=== PATIENT | female | born 1935 | race Caucasian/White ===

== ENCOUNTER 2020-10-01 14:06 | Inpatient (IN) ==
[2020-10-01] MEDS ORDERED: SODIUM CHLORIDE 0.9% 1,000 ML IV STA ×2 (14:37→17:06)
[2020-10-01 15:47] LABS: Basophils # 0.1 10*3/uL (0.0-0.2); Basophils % 0.4 % (0.0-0.8); Eosinophils # 0.6 10*3/uL (0.0-0.87); Eosinophils % 3.9 % (0.00-10.9); Hematocrit 56.9 VOL% (35.7-47.0); Hemoglobin 17.7 GM/DL (12.0-16.0); Immature Granulocytes % 0.4 %; Immature Granulocytes Absolute 0.07 #; Lymphocytes # 1.7 10*3/uL (1.4-4.0); Lymphocytes % 10.7 % (21.3-54.2); Mean Corpuscular HGB Conc 31.1 GM/DL (32-36); Mean Platelet Volume 11.9 FL (9.6-12.0); Monocytes % 10.2 % (1.7-12.7); Neutrophils % 74.4 % (38.7-73.9); Platelet Count 247 T/CUMM (130-400); Red Blood Count 5.99 MC/CUMM (3.8-5.5); Red Cell Distribution Width 14.6 % (9.3-17.3); White Blood Count 16.1 T/CUMM (4-12)
[2020-10-01 16:11] LABS: Calcium 12.8 MG/DL (8.5-10.1); Osmolality,Calculated 337.6 MOS/KG (273-304); Potassium 3.3 MMOL/L (3.5-5.1); Total Protein 8.6 G/DL (6.4-8.3)
[2020-10-01 18:35] LABS: Bacteria,Urine Occasional /HPF (Few); Bilirubin,Urine Negative (Negative); Blood, Urine Negative (Negative); Glucose,Urine (UA) Negative (Negative); Hyaline Casts,Urine 39 /LPF (0-3); Ketones,Urine Negative (Negative); Mucus,Urine Occasional /LPF (Occasional); Nitrite,Urine Negative (Negative); Protein,Urine Negative; RBC,Urine 1 /HPF (0-4); Squamous Epithelial Cell,Urine Occasional /HPF (0-10); Urine Appearance Slightly Hazy (Clear); Urine Color Yellow (Yellow); Urine Specific Gravity 1.014 (1.001-1.035); Urine Urobilinogen < 2.0 EU/DL (0.2-1.0); WBC,Urine 1 /HPF (0-6)
[2020-10-01 19:21] LABS: INR 1.2; PT Patient Result 12.5 SECS (9.8-11.9); Partial Thromboplastin Time 26.5 SECS (23.9-33.8)
[2020-10-01] MEDS ORDERED: GLUCAGON 1 MG VIAL IM PRN (19:26)
[2020-10-01] MEDS ORDERED: diphenhydrAMINE CAP 25 MG CAPSULE PO PRN (19:26)
[2020-10-01] MEDS ORDERED: ONDANSETRON 4 MG/2 ML VIAL IV PRN (19:26)
[2020-10-01] MEDS ORDERED: guaiFENesin/DM ER 600-30 MG TABLET PO PRN (19:26)
[2020-10-01] MEDS ORDERED: NICOTINE 21 MG/24 HR PATCH TRANSDERM PRN (19:26)
[2020-10-01] MEDS ORDERED: DEXTROSE 50% 25 GM/50 ML VIAL IV PRN (19:26)
[2020-10-01] MEDS ORDERED: hydrALAZINE 20 MG/1 ML VIAL IV PRN (19:26)
[2020-10-01] MEDS ORDERED: ACETAMINOPHEN 325 MG TABLET PO PRN (19:26)
[2020-10-01] MEDS: DEXTROSE 5% NACL 0.45% 1,000 ML IV SCH (23:10)
[2020-10-01 23:26] LABS: Calcium 11.6 MG/DL (8.5-10.1); Osmolality,Calculated 343.2 MOS/KG (273-304); Potassium 3.2 MMOL/L (3.5-5.1)
[2020-10-02] MEDS: DEXTROSE 5% NACL 0.45% 1,000 ML IV SCH ×4 (06:33→21:28)
[2020-10-02 07:23] LABS: Calcium 10.1 MG/DL (8.5-10.1); Osmolality,Calculated 336.6 MOS/KG (273-304); Potassium 3.5 MMOL/L (3.5-5.1)
[2020-10-02] MEDS: LACTULOSE 20 GM/30 ML UDCUP PO SCH ×2 (16:14→21:29)
[2020-10-02] MEDS: ZINC GLUCONATE 50 MG TABLET PO SCH (21:29)
[2020-10-02] MEDS: DONEPEZIL 10 MG TABLET PO SCH (21:29)
[2020-10-02] MEDS: MEMANTINE 10 MG TABLET PO SCH (21:30)
[2020-10-02] MEDS: SERTRALINE 100 MG TABLET PO SCH (21:30)
[2020-10-02] MEDS: ASCORBIC ACID 500 MG TABLET PO SCH (21:31)
[2020-10-03] MEDS: DEXTROSE 5% NACL 0.45% 1,000 ML IV SCH ×2 (05:45→16:13)
[2020-10-03 06:02] LABS: Basophils % 0.2 % (0.0-0.8); Eosinophils # 0.5 10*3/uL (0.0-0.87); Hematocrit 41.3 VOL% (35.7-47.0); Hemoglobin 12.7 GM/DL (12.0-16.0); Immature Granulocytes % 0.5 %; Immature Granulocytes Absolute 0.07 #; Lymphocytes # 1.6 10*3/uL (1.4-4.0); Lymphocytes % 12.2 % (21.3-54.2); Mean Corpuscular HGB Conc 30.8 GM/DL (32-36); Mean Corpuscular Volume 95.8 FL (87-102); Mean Platelet Volume 11.8 FL (9.6-12.0); Monocytes % 8.2 % (1.7-12.7); Neutrophils % 74.9 % (38.7-73.9); Platelet Count 169 T/CUMM (130-400); Red Blood Count 4.31 MC/CUMM (3.8-5.5); Red Cell Distribution Width 14.3 % (9.3-17.3); White Blood Count 13.1 T/CUMM (4-12)
[2020-10-03 06:27] LABS: Bilirubin,Total 1.4 MG/DL (0.2-1.0); Calcium 10.3 MG/DL (8.5-10.1); Osmolality,Calculated 323.6 MOS/KG (273-304); Potassium 2.8 MMOL/L (3.5-5.1); Total Protein 5.8 G/DL (6.4-8.3)
[2020-10-03] MEDS ORDERED: [UNRECOGNIZED DRUG - OTHER] PO SCH (09:00)
[2020-10-03] MEDS ORDERED: CHOLECALCIFEROL 1000 UNIT PO SCH (09:00)
[2020-10-03] MEDS: CHOLECALCIFEROL 1,000 UNIT TABLET PO SCH (10:30)
[2020-10-03] MEDS: LACTULOSE 20 GM/30 ML UDCUP PO SCH (10:30)
[2020-10-03] MEDS: MEMANTINE 10 MG TABLET PO SCH ×2 (10:31→20:54)
[2020-10-03] MEDS: ASCORBIC ACID 500 MG TABLET PO SCH ×2 (10:31→20:54)
[2020-10-03] MEDS: ATORVASTATIN 10 MG TABLET PO SCH (10:31)
[2020-10-03] MEDS: MULTIVITAMIN (BEROCCA) TABLET PO SCH (10:31)
[2020-10-03] MEDS: ZINC GLUCONATE 50 MG TABLET PO SCH ×2 (10:31→20:53)
[2020-10-03] MEDS: CALCIUM (CARBONATE)/VITAMIN D 600 MG-400 UNIT TABLET PO SCH (10:31)
[2020-10-03] MEDS: MULTIVITAMIN (CENTRUM) TABLET PO SCH (10:31)
[2020-10-03] MEDS: LEVOTHYROXINE 125 MCG TABLET PO SCH ×2 (13:00→16:31)
[2020-10-03] MEDS ORDERED: MAGNESIUM SULF RIDER 2 GM in PREMIX 1 EACH IV ONE (14:00)
[2020-10-03] MEDS ORDERED: POTASSIUM CHLORIDE 20 MEQ/15 ML UDCUP PER TUBE ONE (14:00)
[2020-10-03] MEDS ORDERED: LIDOCAINE 2% VISCOUS 100 ML BOTTLE ONE (14:17)
[2020-10-03 16:45] LABS: INR 1.2; PT Patient Result 12.9 SECS (9.8-11.9)
[2020-10-03] MEDS: DONEPEZIL 10 MG TABLET PO SCH (20:53)
[2020-10-03] MEDS: SERTRALINE 100 MG TABLET PO SCH (20:54)
[2020-10-04] MEDS: DEXTROSE 5% NACL 0.45% 1,000 ML IV SCH ×5 (01:37→22:58)
[2020-10-04 06:11] LABS: Basophils % 0.2 % (0.0-0.8); Eosinophils # 0.4 10*3/uL (0.0-0.87); Hematocrit 40.8 VOL% (35.7-47.0); Hemoglobin 12.7 GM/DL (12.0-16.0); Immature Granulocytes % 0.5 %; Immature Granulocytes Absolute 0.06 #; Lymphocytes # 1.6 10*3/uL (1.4-4.0); Lymphocytes % 12.9 % (21.3-54.2); Mean Corpuscular HGB Conc 31.1 GM/DL (32-36); Mean Corpuscular Volume 94.2 FL (87-102); Mean Platelet Volume 12.7 FL (9.6-12.0); Neutrophils % 75.4 % (38.7-73.9); Platelet Count 148 T/CUMM (130-400); Red Blood Count 4.33 MC/CUMM (3.8-5.5); Red Cell Distribution Width 14.5 % (9.3-17.3); White Blood Count 12.1 T/CUMM (4-12)
[2020-10-04 06:47] LABS: Albumin 1.9 G/DL (3.4-5.0); Bilirubin,Total 0.6 MG/DL (0.2-1.0); Osmolality,Calculated 308.4 MOS/KG (273-304); Potassium 2.9 MMOL/L (3.5-5.1); Risk Ratio 2.81; Total Protein 5.6 G/DL (6.4-8.3); VLDL CHOLESTEROL 16.4 MG/DL
[2020-10-04] MEDS: ZINC GLUCONATE 50 MG TABLET PO SCH (10:46)
[2020-10-04] MEDS: MULTIVITAMIN (BEROCCA) TABLET PO SCH (10:46)
[2020-10-04] MEDS: CHOLECALCIFEROL 1,000 UNIT TABLET PO SCH (10:46)
[2020-10-04] MEDS: ATORVASTATIN 10 MG TABLET PO SCH (10:46)
[2020-10-04] MEDS: ASCORBIC ACID 500 MG TABLET PO SCH (10:46)
[2020-10-04] MEDS: CALCIUM (CARBONATE)/VITAMIN D 600 MG-400 UNIT TABLET PO SCH (10:46)
[2020-10-04] MEDS: MULTIVITAMIN (CENTRUM) TABLET PO SCH (10:47)
[2020-10-04] MEDS: MEMANTINE 10 MG TABLET PO SCH (10:47)
[2020-10-04] MEDS: LEVOTHYROXINE 125 MCG TABLET PO SCH (10:47)
[2020-10-04] MEDS ORDERED: POTASSIUM CHLORIDE 20 MEQ/15 ML UDCUP PO ONE (11:04)
[2020-10-04] MEDS ORDERED: LACTULOSE 20 GM/30 ML UDCUP PO PRN (13:38)
[2020-10-05] MEDS: MEMANTINE 10 MG TABLET PO SCH ×3 (01:40→21:21)
[2020-10-05] MEDS: DONEPEZIL 10 MG TABLET PO SCH ×2 (01:40→21:19)
[2020-10-05] MEDS: ASCORBIC ACID 500 MG TABLET PO SCH ×3 (01:41→21:22)
[2020-10-05] MEDS: SERTRALINE 100 MG TABLET PO SCH ×2 (01:41→21:21)
[2020-10-05] MEDS: ZINC GLUCONATE 50 MG TABLET PO SCH ×3 (01:41→21:21)
[2020-10-05 05:22] LABS: Basophils % 0.2 % (0.0-0.8); Eosinophils # 0.4 10*3/uL (0.0-0.87); Eosinophils % 4.3 % (0.00-10.9); Hematocrit 38.4 VOL% (35.7-47.0); Hemoglobin 12.1 GM/DL (12.0-16.0); Immature Granulocytes % 1.2 %; Immature Granulocytes Absolute 0.11 #; Lymphocytes # 1.9 10*3/uL (1.4-4.0); Mean Corpuscular HGB Conc 31.5 GM/DL (32-36); Mean Corpuscular Volume 93.4 FL (87-102); Mean Platelet Volume 12.4 FL (9.6-12.0); Monocytes % 7.7 % (1.7-12.7); Neutrophils % 65.6 % (38.7-73.9); Platelet Count 140 T/CUMM (130-400); Red Blood Count 4.11 MC/CUMM (3.8-5.5); Red Cell Distribution Width 14.3 % (9.3-17.3); White Blood Count 9.1 T/CUMM (4-12)
[2020-10-05 06:46] LABS: Calcium 9.3 MG/DL (8.5-10.1); Osmolality,Calculated 304.6 MOS/KG (273-304)
[2020-10-05] MEDS: CHOLECALCIFEROL 1,000 UNIT TABLET PO SCH (12:24)
[2020-10-05] MEDS: MULTIVITAMIN (BEROCCA) TABLET PO SCH (12:24)
[2020-10-05] MEDS: MULTIVITAMIN (CENTRUM) TABLET PO SCH (12:24)
[2020-10-05] MEDS: ATORVASTATIN 10 MG TABLET PO SCH (12:25)
[2020-10-05] MEDS: CALCIUM (CARBONATE)/VITAMIN D 600 MG-400 UNIT TABLET PO SCH (12:25)
[2020-10-05] MEDS: LACTULOSE 20 GM/30 ML UDCUP PO SCH (12:25)
[2020-10-05] MEDS: LEVOTHYROXINE 125 MCG TABLET PO SCH (12:25)
[2020-10-05] MEDS: POTASSIUM CHLORIDE 20 MEQ TABLET PO ONE (16:21)
[2020-10-06 06:11] LABS: Basophils % 0.2 % (0.0-0.8); Eosinophils # 0.4 10*3/uL (0.0-0.87); Eosinophils % 4.3 % (0.00-10.9); Hematocrit 36.8 VOL% (35.7-47.0); Hemoglobin 11.7 GM/DL (12.0-16.0); Immature Granulocytes % 0.8 %; Immature Granulocytes Absolute 0.07 #; Lymphocytes # 1.9 10*3/uL (1.4-4.0); Lymphocytes % 20.7 % (21.3-54.2); Mean Corpuscular HGB Conc 31.8 GM/DL (32-36); Mean Corpuscular Volume 92.5 FL (87-102); Mean Platelet Volume 12.3 FL (9.6-12.0); Monocytes % 9.1 % (1.7-12.7); Neutrophils % 64.9 % (38.7-73.9); Platelet Count 153 T/CUMM (130-400); Red Blood Count 3.98 MC/CUMM (3.8-5.5); Red Cell Distribution Width 14.3 % (9.3-17.3); White Blood Count 9.1 T/CUMM (4-12)
[2020-10-06 06:34] LABS: Calcium 9.1 MG/DL (8.5-10.1); Potassium 2.9 MMOL/L (3.5-5.1)
[2020-10-06 06:36] LABS: Potassium 2.8 MMOL/L (3.5-5.1)
[2020-10-06] MEDS: MULTIVITAMIN (CENTRUM) TABLET PO SCH (08:09)
[2020-10-06] MEDS: CALCIUM (CARBONATE)/VITAMIN D 600 MG-400 UNIT TABLET PO SCH (08:09)
[2020-10-06] MEDS: MULTIVITAMIN (BEROCCA) TABLET PO SCH (08:09)
[2020-10-06] MEDS: ASCORBIC ACID 500 MG TABLET PO SCH ×2 (08:10→21:28)
[2020-10-06] MEDS: ZINC GLUCONATE 50 MG TABLET PO SCH ×2 (08:10→21:28)
[2020-10-06] MEDS: MEMANTINE 10 MG TABLET PO SCH ×2 (08:10→21:28)
[2020-10-06] MEDS: CHOLECALCIFEROL 1,000 UNIT TABLET PO SCH (08:10)
[2020-10-06] MEDS: LEVOTHYROXINE 125 MCG TABLET PO SCH (08:10)
[2020-10-06] MEDS: ATORVASTATIN 10 MG TABLET PO SCH (08:10)
[2020-10-06] MEDS: LACTULOSE 20 GM/30 ML UDCUP PO SCH (08:11)
[2020-10-06] MEDS ORDERED: POTASSIUM CHLORIDE RIDER 10 MEQ in PREMIX 1 EACH IV PRN (13:19)
[2020-10-06] MEDS ORDERED: POTASSIUM CHLORIDE RIDER 10 MEQ in PREMIX 1 EACH IV SCH (13:30)
[2020-10-06] MEDS ORDERED: MAGNESIUM SULF RIDER 2 GM in PREMIX 1 EACH IV ONE (15:00)
[2020-10-06] MEDS: DEXTROSE 5% KCL 20 MEQ 20 MEQ/1,000 ML BAG IV SCH (15:05)
[2020-10-06] MEDS: cefTRIAXone 1,000 MG in SYRINGE 1 EACH IV SCH (16:12)
[2020-10-06] MEDS: SERTRALINE 100 MG TABLET PO SCH (21:28)
[2020-10-06] MEDS: DONEPEZIL 10 MG TABLET PO SCH (21:28)
[2020-10-07 05:16] LABS: Basophils % 0.2 % (0.0-0.8); Eosinophils # 0.3 10*3/uL (0.0-0.87); Eosinophils % 3.9 % (0.00-10.9); Hematocrit 36.5 VOL% (35.7-47.0); Immature Granulocytes % 0.6 %; Immature Granulocytes Absolute 0.05 #; Lymphocytes # 1.6 10*3/uL (1.4-4.0); Lymphocytes % 19.6 % (21.3-54.2); Mean Corpuscular HGB Conc 32.9 GM/DL (32-36); Mean Corpuscular Volume 91.3 FL (87-102); Mean Platelet Volume 12.1 FL (9.6-12.0); Neutrophils % 66.7 % (38.7-73.9); Platelet Count 146 T/CUMM (130-400)
[2020-10-07 05:26] LABS: Calcium 9.1 MG/DL (8.5-10.1); Osmolality,Calculated 288.4 MOS/KG (273-304); Potassium 2.8 MMOL/L (3.5-5.1)
[2020-10-07] MEDS: ZINC GLUCONATE 50 MG TABLET PO SCH ×3 (08:45→21:50)
[2020-10-07] MEDS: ASCORBIC ACID 500 MG TABLET PO SCH ×3 (08:45→21:50)
[2020-10-07] MEDS: MULTIVITAMIN (CENTRUM) TABLET PO SCH (08:45)
[2020-10-07] MEDS: MULTIVITAMIN (BEROCCA) TABLET PO SCH (08:45)
[2020-10-07] MEDS: CHOLECALCIFEROL 1,000 UNIT TABLET PO SCH (08:45)
[2020-10-07] MEDS: MEMANTINE 10 MG TABLET PO SCH ×3 (08:45→21:50)
[2020-10-07] MEDS: ATORVASTATIN 10 MG TABLET PO SCH (08:46)
[2020-10-07] MEDS: LEVOTHYROXINE 125 MCG TABLET PO SCH (08:46)
[2020-10-07] MEDS: CALCIUM (CARBONATE)/VITAMIN D 600 MG-400 UNIT TABLET PO SCH (08:46)
[2020-10-07] MEDS: LACTULOSE 20 GM/30 ML UDCUP PO SCH (08:46)
[2020-10-07] MEDS: POTASSIUM CHLORIDE RIDER 10 MEQ in PREMIX 1 EACH IV PRN ×5 (10:15→17:50)
[2020-10-07] MEDS: DEXTROSE 5% NACL 0.45% 1,000 ML IV SCH ×2 (11:25→11:26)
[2020-10-07] MEDS: POTASSIUM CHLORIDE 20 MEQ TABLET PO ONE (11:27)
[2020-10-07] MEDS: DEXTROSE 5% KCL 20 MEQ 20 MEQ/1,000 ML BAG IV SCH (12:05)
[2020-10-07] MEDS: cefTRIAXone 1,000 MG in SYRINGE 1 EACH IV SCH (14:20)
[2020-10-07] MEDS: DEXT 5% NACL 0.9% KCL 40 MEQ 40 MEQ/1,000 ML BAG IV SCH (16:20)
[2020-10-07] MEDS: DONEPEZIL 10 MG TABLET PO SCH ×2 (21:48→21:50)
[2020-10-07] MEDS: SERTRALINE 100 MG TABLET PO SCH ×2 (21:48→21:50)
[2020-10-07] MEDS: ENOXAPARIN 40 MG/0.4 ML SYRINGE SUBCUT SCH ×2 (21:48→21:49)
[2020-10-08 06:43] LABS: Basophils % 0.3 % (0.0-0.8); Eosinophils # 0.1 10*3/uL (0.0-0.87); Eosinophils % 1.4 % (0.00-10.9); Hematocrit 37.9 VOL% (35.7-47.0); Hemoglobin 12.2 GM/DL (12.0-16.0); Immature Granulocytes % 0.5 %; Immature Granulocytes Absolute 0.05 #; Lymphocytes # 1.1 10*3/uL (1.4-4.0); Lymphocytes % 10.9 % (21.3-54.2); Mean Corpuscular HGB Conc 32.2 GM/DL (32-36); Mean Corpuscular Volume 90.2 FL (87-102); Mean Platelet Volume 11.5 FL (9.6-12.0); Monocytes % 8.5 % (1.7-12.7); Neutrophils % 78.4 % (38.7-73.9); Platelet Count 152 T/CUMM (130-400); Red Cell Distribution Width 14.3 % (9.3-17.3); White Blood Count 9.9 T/CUMM (4-12)
[2020-10-08 06:58] LABS: Osmolality,Calculated 282.8 MOS/KG (273-304); Potassium 3.6 MMOL/L (3.5-5.1)
[2020-10-08 07:01] LABS: Albumin 1.8 G/DL (3.4-5.0); Bilirubin,Total 1.2 MG/DL (0.2-1.0); Potassium 3.6 MMOL/L (3.5-5.1); Total Protein 5.6 G/DL (6.4-8.3)
[2020-10-08] MEDS: ZINC GLUCONATE 50 MG TABLET PO SCH ×2 (09:13→09:35)
[2020-10-08] MEDS: LACTULOSE 20 GM/30 ML UDCUP PO SCH ×2 (09:13→09:35)
[2020-10-08] MEDS: MEMANTINE 10 MG TABLET PO SCH ×2 (09:14→09:35)
[2020-10-08] MEDS: MULTIVITAMIN (BEROCCA) TABLET PO SCH ×2 (09:14→09:35)
[2020-10-08] MEDS: ATORVASTATIN 10 MG TABLET PO SCH ×2 (09:14→09:35)
[2020-10-08] MEDS: CALCIUM (CARBONATE)/VITAMIN D 600 MG-400 UNIT TABLET PO SCH ×2 (09:14→09:35)
[2020-10-08] MEDS: ASCORBIC ACID 500 MG TABLET PO SCH ×2 (09:14→09:35)
[2020-10-08] MEDS: LEVOTHYROXINE 125 MCG TABLET PO SCH ×2 (09:14→09:35)
[2020-10-08] MEDS: CHOLECALCIFEROL 1,000 UNIT TABLET PO SCH ×2 (09:14→09:35)
[2020-10-08] MEDS: MULTIVITAMIN (CENTRUM) TABLET PO SCH (09:34)
[2020-10-08 12:17] VITALS: BP 118/58
[2020-10-08] MEDS: DEXT 5% NACL 0.9% KCL 40 MEQ 40 MEQ/1,000 ML BAG IV SCH ×2 (12:33→14:13)
[2020-10-08] MEDS: cefTRIAXone 1,000 MG in SYRINGE 1 EACH IV SCH (18:09)
== END 2020-10-08 15:56 | disposition hospice, inpatient (51) | DRG 682 ==
LOC: EDBD → EDUNIT# → N.EDINP 14:06 → N.ED 14:06 → N.3E 19:46 → SUATTDRO 10-02 15:44
PROVIDERS: ADMIT Internal Medicine; ATTEND Internal Medicine